=== PATIENT | male | born 1995 | race African-American/Black ===

== ENCOUNTER 2021-11-22 12:44 | Emergency (ER) | payer SELFPAY ==
[2021-11-22] VITALS (16 sets, daily range): BP systolic 109–146; BP diastolic 79–122; PULSE 83–105; RESP 17–28; TEMP 36.6; O2SAT 96–100
--- NOTE | 2021-11-22 13:26 | ED.NAVMDI ---
HPI - Nausea/Vomiting/Diarrhea General Chief complaint: Nausea/Vomiting/Diarrhea Stated complaint: n/v/d Time Seen by Provider: 11/22/21 13:14 Source: patient Mode of arrival: ambulatory Limitations: no limitations History of Present Illness HPI Narrative: 18-year-old male presents emergency room secondary to vomiting and diarrhea is gone for couple days. Apparently as a child at home has similar type symptoms a week ago. He states he has had about 7 episodes of vomiting the last 24 hours. He states he is a diabetic does not take medication does not check his blood sugar at home. Denies any chills or fevers. No blood in his stool or his vomit. Denies any focal abdominal tenderness just some mild diffuse tenderness noted. Related Data Allergies Allergy/AdvReac Type Severity Reaction Status Date / Time salmon oil Allergy Hives Verified 11/22/21 12:49 shellfish derived Allergy Anaphylaxis Verified 11/22/21 12:49 Review of Systems Review of Systems: CONSTITUTIONAL: Denies fever, chills, or sweats. EYES: Denies visual changes, redness, or discharge. ENT: Denies rhinorrhea, congestion, sore throat, or otalgia. CARDIOVASCULAR: Denies chest pain, palpitations, or edema. RESPIRATORY: Denies cough or dyspnea. GASTROINTESTINAL: Complains of mild diffuse tenderness of the abdomen with associated nausea, vomiting, and diarrhea. No blood in the stool or vomitus GENITOURINARY: Denies dysuria or hematuria. SKIN: Denies rash or itching. MUSCULOSKELETAL: Denies back pain, joint pain, or myalgia. NEUROLOGIC: Denies headache, numbness, or weakness. PSYCHIATRIC: Denies anxiety or depression. [facility] Past Medical History Medical History Diabetes Social History Social History (Updated 11/22/21 @ 13:28 by Bill Woodard DO) Smoking status: Never smoker Exam Narrative: APPEARANCE: Well appearing, no pain in distress, well-nourished. Head normocephalic atraumtaic. EYES: PERRLA/EOMI, conjunctivae very clear. NOSE: Normal no drainage EARS:TMS clear Leidy Hyatt, with good light reflex. THROAT: Pharynx clear, no exudate. NECK: Supple. No adenopathy, no masses. RESPIRATORY: Airway patent, repsirations nonlabored. Clear to auscultation bilaterally, no rales, rhonchi, wheezing. CARDIOVASCULAR: Regular rate and rhythm without murmurs rubs or gallops. ABDOMINAL: Soft, nontender, nondistended, no hepatosplenomegally. Hyperactive bowel sounds MUSCULOSKELETAl: Moves all extremities. Strenght/ROM intact, No edema, No calf tenderness. NEURO: Alert. Cranial nerves II through XII intact. Good gait. Good coordination SKIN:: Warm, dry. Normal Color PSYCHIATRIC: Normal affect/mood, normal interaction with parents. Course Course Emergency Course: Patient had an IV established and given some fluids. Laboratory work-up was unremarkable. He is a diabetic but his blood sugars are in the low 100s. Patient's had no additional episodes of vomiting diarrhea in the emergency department. Vital Signs Vital signs: Vital Signs Temperature 97.8 F 11/22/21 12:46 Pulse Rate 105 H 11/22/21 12:46 Respiratory Rate 18 11/22/21 12:46 Blood Pressure 143/93 H 11/22/21 12:46 Pulse Oximetry 100 11/22/21 12:46 Temperature 97.8 F 11/22/21 12:46 Pulse Rate 105 H 11/22/21 12:46 Respiratory Rate 18 11/22/21 12:46 Blood Pressure 143/93 H 11/22/21 12:46 Pulse Oximetry 100 11/22/21 12:46 MDM - Nausea/Vomiting/Diarrhea MDM Narrative Medical decision making narrative: Laboratory work-up is unremarkable if thing was explained to the patient will be discharged home with a prescription for Zofran. Patient symptoms more consistent with a viral gastroenteritis. Other members of the family had the same type symptoms last week. Lab Data Attestation: I reviewed the patient's lab results. Result diagrams: 11/22/21 13:57 11/22/21 13:57 Labs: Lab Results 11/22/21
[2021-11-22] MEDS: SODIUM CHLORIDE 0.9% IV 1,000 ML 999 ML IV CONT (13:54)
[2021-11-22] MEDS: ONDANSETRON INJ 4 MG/2 ML VIAL IV PUSH (13:54)
[2021-11-22 14:02] LABS: Basophils Percent Auto 0.3 % (0.2-1.2); Eosinophils Percent Auto 0.4 % (0-4.4); Hematocrit 52.5 % (42.0-52.0); Hemoglobin 17.4 g/dL (14.0-18.0); Immature Granulocyte Absolute 0.03 K/mm3 (0.00-0.031); Immature Granulocyte Percent A 0.3 % (0-0.5); Lymphocytes Absolute Auto 1.28 K/mm3 (0.9-3.2); Mean Corpuscular HGB Conc 33.1 g/dl (32-36); Mean Corpuscular Hemoglobin 29.5 pg (26-34); Mean Platelet Volume 7.8 fl (7.4-10.4); Monocytes Absolute Auto 0.7 K/mm3 (0.1-0.6); Monocytes Percent Auto 6.1 % (2.6-8.5); Neutrophils Absolute Auto 8.6 K/mm3 (1.3-6.7); Neutrophils Percent Auto 80.9 % (45.5-73.1); Platelet Count Result 377 k/mm3 (150-375); Red Cell Distribution Width 12.2 % (11.5-14.5); White Blood Count 10.7 K/mm3 (4.5-10.0)
[2021-11-22 14:16] LABS: Alanine Aminotransferase 31 U/L (4-50); Albumin Level 4.9 g/dL (3.5-5.1); Alkaline Phosphatase 86 U/L (38-126); Anion Gap 8 mmol/L (8-16); Aspartate Amino Transferase 31 U/L (17-59); Bilirubin,Total 1.3 mg/dL (0.2-1.3); Blood Urea Nitrogen 14 mg/dL (9-20); Calcium 9.1 mg/dL (8.4-10.2); Carbon Dioxide 27 mmol/L (22-30); Chloride 101 mmol/L (98-107); Estimated CRCL calculation 127 ml/min; Estimated Glomerular Filt Rate > 60; Glucose 117 mg/dL (65-110); Potassium 3.9 mmol/L (3.4-5.0); Sodium 136 mmol/L (137-145)
== END 2021-11-22 15:45 | disposition home or self-care (01) ==
PROVIDERS: Emergency Provider Emergency Medicine
DX: K52.9 Noninfective gastroenteritis and colitis, unspecified (principal); E11.9 Type 2 diabetes mellitus without complications
CPT/HCPCS: 36415; 80053; 85025; 96361; 96374; 99284; J2405; J7030